=== PATIENT | male | born 1995 | race Caucasian/White ===

== ENCOUNTER 2017-02-13 12:36 | Emergency (ER) | payer SELFPAY ==
[~2017-02-13] VITALS: Ht 182.9 cm; Wt 83.9 kg
[~2017-02-13 12:36] MED LIST: AMOX500T PO; NAPR500T8 PO
[2017-02-13 12:45] VITALS: BP 142/74
--- NOTE | 2017-02-13 13:19 | RAD ---
Indication: Pain in the medial aspect of the left ankle, fall. Time of exam 12:59 PM 3 views of the left ankle were obtained. The alignment is normal. Ankle mortise is well-maintained. The talar dome is smooth. No fracture or dislocation is seen. Impression: No acute bony abnormality is detected.
--- NOTE | 2017-02-13 13:33 | PHYS DOC ---
Past Medical History Past Medical History: No Pertinent History Past Surgical History: No Surgical History Alcohol Use: None Drug Use: None Adult General Chief Complaint Chief Complaint: ANKLE PROBLEM HPI HPI Patient is a 21 year old male who presents with mild left medial and lateral ankle pain that began yesterday after jumping off an 8 foot deck and rolling his ankle. Patient states he fell. Patient denies any loss of consciousness. Denies any back pain. Review of Systems Review of Systems Constitutional: Denies fever or chills [] Eyes: Denies change in visual acuity, redness, or eye pain [] Musculoskeletal: left medial and lateral ankle pain Integument: Denies rash or skin lesions [] Neurologic: Denies headache, focal weakness or sensory changes [] Endocrine: Denies polyuria or polydipsia [] Allergies Allergies Allergies Coded Allergies Type Severity Reaction Last Updated Verified No Known Drug Allergies 08/07/16 No Physical Exam Physical Exam Constitutional: Well developed, well nourished, no acute distress, non-toxic appearance. [] HENT: Normocephalic, atraumatic, bilateral external ears normal, oropharynx moist, no oral exudates, nose normal. [] Skin: Warm, dry, no erythema, no rash. [] Back: No tenderness, no CVA tenderness. [] Extremities: Left ankle with small soft tissue swelling medially and laterally. No foot pain. Full range of motion to the left ankle and foot. +2 left pedal pulse. Cap refill less than 2 seconds and left lower extremity. Sensation intact to the left lower extremity. Neurologic: Alert and oriented X 3, normal motor function, normal sensory function, no focal deficits noted. [] Psychologic: Affect normal, judgement normal, mood normal. [] Current Patient Data Vital Signs Vital Signs Date Time Temp Pulse Resp B/P (MAP) Pulse Ox O2 Delivery O2 Flow Rate FiO2 02/13/17 12:45 98.1 66 18 98 Room Air 98.1 EKG EKG [] Radiology/Procedures Radiology/Procedures []PROCEDURE: ANKLE LEFT 3V Indication: Pain in the medial aspect of the left ankle, fall. Time of exam 12:59 PM 3 views of the left ankle were obtained. The alignment is normal. Ankle mortise is well-maintained. The talar dome is smooth. No fracture or dislocation is seen. Impression: No acute bony abnormality is detected. DICTATED and SIGNED BY: ALE VELÁZQUEZ MD DATE: 02/13/17 1316 CC: ARI PRESCOTT APRN; JACOBO ROWELL ~ Course & Med Decision Making Course & Med Decision Making Pertinent Labs and Imaging studies reviewed. (See chart for details) Patient is in the ED with left ankle pain that began yesterday after jumping off an 8 foot deck. Patient denies any back pain or foot pain. Left ankle x- rays interpreted by radiologist were negative for any acute findings. Air cast provided for the left ankle. Aircast applied by the equipment maintenance tech, neurovascular exam done by me is normal, cap refill less than 2 seconds. Ice elevation encouraged. Follow-up with orthopedic doctor in one week if pain continues. Tylenol/Motrin for pain. Dragon Disclaimer Dragon Disclaimer This electronic medical record was generated, in whole or in part, using a voice recognition dictation system. Departure Departure Impression: Primary Impression: Ankle sprain Additional Impression: Fall from height of greater than 3 feet Disposition: 01 HOME, SELF-CARE Condition: STABLE Referrals: JACOBO ROWELL (PCP) DEB MEADOWS MD follow up in one week Patient Instructions: Ankle Sprain, Acute, with Phase I Rehab-Sports[facility], Fall Prevention and Home Safety Additional Instructions: You were seen for left ankle sprain area and ice and elevate the extremity. Keep the air cast provided as needed and tolerated. You can bear weight to the left lower extremity as tolerated. Follow-up with the provided orthopedic doctor in one week if pain continues. Take Tylenol or Motrin as needed for pain. Problem Qualifiers Primary Impression: Ankle sprain Encounter type: initial encounter Involved ligament of ankle: unspecified ligament Laterality: left Qualified Codes: S93.402A - Sprain of unspecified ligament of left ankle, initial encounter ARI PRESCOTT APRN Feb 13, 2017 13:32
== END 2017-02-13 13:50 | disposition home or self-care (01) ==
LOC: ER 12:36
DX: S93.402A Sprain of unspecified ligament of left ankle, initial encounter (principal); W17.89XA Other fall from one level to another, initial encounter; Y93.89 Activity, other specified; Y99.8 Other external cause status; Y92.89 Other specified places as the place of occurrence of the external cause
CPT/HCPCS: 73610; 99284; L4350

== ENCOUNTER 2017-02-24 07:57 | Emergency (ER) | payer SELFPAY ==
[~2017-02-24] VITALS: Ht 182.9 cm; Wt 81.6 kg
[2017-02-24 08:00] VITALS: BP 144/72
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
[2017-02-24] MEDS ORDERED: HYDROcodone/APAP 5/325MG 1 TAB TABLET PO ONE (09:00)
[2017-02-24] MEDS ORDERED: IBUPROFEN 600 MG TABLET. PO ONE (09:00)
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
== END 2017-02-24 09:56 | disposition home or self-care (01) ==
LOC: ER 07:57
DX: M25.512 Pain in left shoulder (principal); R07.89 Other chest pain; R00.2 Palpitations; V49.49XA Driver injured in collision with other motor vehicles in traffic accident, initial encounter; Y93.89 Activity, other specified; Y99.8 Other external cause status; Y92.488 Other paved roadways as the place of occurrence of the external cause
CPT/HCPCS: 71101; 73030; 99284

== ENCOUNTER 2018-01-12 23:30 | Emergency (ER) | payer SELFPAY ==
[2018-01-13] MEDS ORDERED: predniSONE 10 MG TABLET (00:56)
[2018-01-13] MEDS: predniSONE 20 MG TABLET PO (01:00)
== END 2018-01-13 00:59 | disposition home or self-care (01) ==
LOC: ER 23:30
DX: L25.9 Unspecified contact dermatitis, unspecified cause (principal)
CPT/HCPCS: 99283; J7512

== ENCOUNTER 2018-01-22 20:26 | Emergency (ER) | payer SELFPAY | END 2018-01-22 22:28 | disposition home or self-care (01) | LOC: ER 20:26 | DX: S93.602A Unspecified sprain of left foot, initial encounter (principal); W20.8XXA Other cause of strike by thrown, projected or falling object, initial encounter; Y93.89 Activity, other specified; Y92.89 Other specified places as the place of occurrence of the external cause; Y99.8 Other external cause status | CPT/HCPCS: 29515; 73630; 99284 ==

== ENCOUNTER 2018-08-31 12:57 | Emergency (ER) | payer SELFPAY ==
[~2018-08-31] VITALS: Ht 182.9 cm; Wt 86.2 kg
[~2018-08-31 12:57] MED LIST changes: +METH4TAB2 PO
[2018-08-31 13:08] VITALS: BP 174/81
--- NOTE | 2018-08-31 13:13 | PHYS DOC ---
Past Medical History Past Medical History: No Pertinent History Past Surgical History: No Surgical History Alcohol Use: None Drug Use: None Adult General Chief Complaint Chief Complaint: HAND PROBLEM HPI HPI Patient is a 22 year old male who presents with right hand injury. Patient states he was shoveling snow last night when he slipped on the ice and fell forward. He fell on an outstretched hand. He presents to the ER today complaining of pain and swelling over the dorsum of the right hand and fingers. Denies additional injury. Did not strike his head. He took ibuprofen at home which did help mildly with his pain symptoms. His last tetanus shot was one year earlier. Review of Systems Review of Systems Constitutional: Denies fever or chills Eyes: Denies HENT: Denies nasal congestion or sore throat Respiratory: Denies cough or shortness of breath GI: Denies : Denies dysuria Musculoskeletal: Denies back pain or joint pain other than described above Integument: Denies rash or skin lesions, but does have abrasions to the dorsum of the right hand and proximal fingers Neurologic: Denies headache All other systems were reviewed and found to be within normal limits, except as documented in this note. Current Medications Current Medications Current Medications Medications (Trade) Dose Ordered Sig/Mikael Start Time Stop Time Status Last Admin Dose Admin Acetaminophen/ Hydrocodone Bitart (Lortab 5/325) 1 tab 1X ONCE 08/31/18 13:15 08/31/18 13:17 DC 08/31/18 13:29 1 TAB Ibuprofen (Motrin) 800 mg 1X ONCE 08/31/18 13:15 08/31/18 13:17 DC 08/31/18 13:29 800 MG Allergies Allergies Allergies Coded Allergies Type Severity Reaction Last Updated Verified No Known Drug Allergies 08/07/16 No Physical Exam Physical Exam Constitutional: Well developed, well nourished, no acute distress HENT: Normocephalic, atraumatic Eyes: PERRLA, EOMI Neck: Normal range of motion Skin: Warm, dry Extremities: Swelling, ecchymosis, and abrasions are present over the dorsum of the right hand. The abrasions do not require sutures. Capillary refill distally is less than 2 seconds. Sensation light touch is intact over all dermatomes. The patient is able to make an okay sign and touch his thumb to his pinky. Neurologic: Alert and oriented X 3 Psychologic: Affect normal Current Patient Data Vital Signs Vital Signs Date Time Temp Pulse Resp B/P (MAP) Pulse Ox O2 Delivery O2 Flow Rate FiO2 08/31/18 13:29 18 98 Room Air 08/31/18 13:08 98.2 63 174/81 (112) 98.2 EKG EKG [] Radiology/Procedures Radiology/Procedures FINDINGS: Small ossicle is seen at the ulnar base of the fifth metacarpal, likely from old injury as the fragment is corticated. No evidence for acute fracture or dislocation. No significant soft tissue swelling is identified. IMPRESSION: 1. No evidence of acute fracture or dislocation. If there is persistent clinical concern for fracture, follow-up radiographs in 10-14 days is recommended. 2. Well-corticated ossicle base of fifth metacarpal likely old injury. Course & Med Decision Making Course & Med Decision Making Pertinent Labs and Imaging studies reviewed. (See chart for details) 13:00: Patient seen and examined. Xrays ordered and meds for pain. 14:00: No acute findings on plain film imaging. Patient's pain is currently improved. Plan is for discharge home. He is placed on ibuprofen and Welsh for severe pain. His hand is placed in a splint for comfort. He is provided a work release. Pain medication usage and precautions were discussed and all of his questions were answered prior to discharge home. The patient is accompanied by a friend who will be driving him today. Dragon Disclaimer Dragon Disclaimer This electronic medical record was generated, in whole or in part, using a voice recognition dictation system. Departure Departure Disposition: 01 HOME, SELF-CARE Condition: GOOD Referrals: JACOBO ROWELL (PCP) Scripts Hydrocodone/Apap 5-325 (NORCO 5-325 TABLET) 1 Each Tablet 1-2 EACH PO PRN Q6HRS PRN for SEVERE PAIN, #20 as needed for pain Prov: ROYER TORRES DO 08/31/18 Ibuprofen (IBUPROFEN) 800 Mg Tablet 800 MG PO PRN TID PRN for PAIN, #30 TAB take with food or milk to avoid upsetting stomach Prov: ROYER TORRES DO 08/31/18 ROYER TORRES DO Aug 31, 2018 13:13
[2018-08-31] MEDS: HYDROcodone/APAP 5/325MG 1 TAB TABLET PO ONE (13:29)
[2018-08-31] MEDS: IBUPROFEN 400 MG TABLET. PO ONE (13:29)
--- NOTE | 2018-08-31 13:54 | RAD ---
EXAM: PA, oblique and lateral views of the right hand DATE: 08/31/2018 1:32 PM INDICATION: PT FELL ON ICE LAST PM. PAIN/SWELLING TO RT HAND COMPARISON: No Prior FINDINGS: Small ossicle is seen at the ulnar base of the fifth metacarpal, likely from old injury as the fragment is corticated. No evidence for acute fracture or dislocation. No significant soft tissue swelling is identified. IMPRESSION: 1. No evidence of acute fracture or dislocation. If there is persistent clinical concern for fracture, follow-up radiographs in 10-14 days is recommended. 2. Well-corticated ossicle base of fifth metacarpal likely old injury. Electronically signed by: Heriberto Lawrence MD (08/31/2018 1:49 PM) [id number]
[2018-08-31] MEDS ORDERED: IBUP-1060 PO (14:09)
[2018-08-31] MEDS ORDERED: HYDR-3164 PO (14:09)
== END 2018-08-31 14:15 | disposition home or self-care (01) ==
LOC: ER 12:57
DX: S69.81XA Other specified injuries of right wrist, hand and finger(s), initial encounter (principal); W00.0XXA Fall on same level due to ice and snow, initial encounter; Y93.89 Activity, other specified; Y92.89 Other specified places as the place of occurrence of the external cause; Y99.8 Other external cause status
CPT/HCPCS: 73130; 99283